=== PATIENT | female | born 1970 | race Hispanic/Latino ===

== ENCOUNTER 2018-04-04 06:24 | Day surgery (SDC) | payer OTHER ==
[2018-04-04] MEDS ORDERED: ZOFRAN IV PRN (09:26)
[2018-04-04] MEDS ORDERED: TORADOL IV PRN (09:26)
[2018-04-04] MEDS ORDERED: DILAUDID IV PRN ×2 (09:26)
[2018-04-04] MEDS ORDERED: REGLAN IV PRN (09:26)
[2018-04-04] MEDS ORDERED: MOTRIN PO PRN (09:26)
--- NOTE | 2018-04-04 09:32 | Anesthesia Consultation ---
Anesthesia Consult and Med Hx Date of service: 04/04/18 - Airway Anesthetic Teeth Evaluation: Good ROM Head & Neck: Adequate Mental/Hyoid Distance: Adequate Mallampati Class: Class I Intubation Access Assessment: Good - Pulmonary Exam CTA: Yes - Cardiac Exam Cardiac Exam: RRR - Pre-Operative Health Status ASA Pre-Surgery Classification: ASA1, ASA2 Proposed Anesthetic Plan: General - Pre-Anesthesia Comment Pre-Anesthesia Comments: LMA ok - Central Nervous System Hx Seizures: Yes (last seizure at age 26) Hx Psychiatric Problems: No - Other Systems Hx Alcohol Use: Yes (OCCAS) Hx Substance Use: No
--- NOTE | 2018-04-04 09:33 | Anesthesia Day of Surgery ---
Anesthesia Day of Surgery - Day of Surgery Patient Examined: Yes Patient H&P Reviewed: Yes Patient is NPO: Yes
[2018-04-04 09:35] LABS: Hematocrit 40.5 % (30.3-42.9); Hemoglobin 13.6 gm/dl (10.1-14.3); Mean Corpuscular HGB Conc 34 % (30-34); Mean Corpuscular Hemoglobin 32 pg (28-32); Mean Corpuscular Volume 95 fl (79-97); Platelet Count 245 K/mm3 (140-440); Red Blood Count 4.24 M/mm3 (3.65-5.03); Red Cell Distribution Width 12.6 % (13.2-15.2)
[2018-04-04] MEDS ORDERED: XYLOCAINE MPF 2% ONE ×2 (09:50→11:03)
[2018-04-04] MEDS ORDERED: ZEMURON IV ONE ×2 (09:50→11:03)
[2018-04-04] MEDS ORDERED: BLOXIVERZ ONE ×2 (09:50→11:30)
[2018-04-04] MEDS ORDERED: DECADRON ONE ×2 (09:50→11:03)
[2018-04-04] MEDS ORDERED: QUELICIN ONE (09:50)
[2018-04-04] MEDS ORDERED: ROBINUL ONE ×4 (09:50→11:27)
[2018-04-04] MEDS ORDERED: ZOFRAN ONE ×2 (09:50→11:03)
[2018-04-04] MEDS ORDERED: DIPRIVAN 10 MG/ML IV ONE ×2 (09:50→10:24)
[2018-04-04] MEDS ORDERED: NEO SYNEPHRINE/NS Syringe(OR USE) IV ONE ×2 (09:50→11:40)
[2018-04-04] MEDS ORDERED: LACTATED RINGERS 1,000 ML IV SCH (10:00)
[2018-04-04] MEDS ORDERED: ANCEF/STERILE WATER 2 GM/20 ML IV NR (10:00)
[2018-04-04] MEDS ORDERED: SUBLIMAZE ONE ×2 (10:24→11:08)
[2018-04-04] MEDS ORDERED: VERSED IV ONE (10:24)
[2018-04-04] MEDS ORDERED: LACTATED RINGERS 1,000 ML ONE ×2 (11:03→11:43)
[2018-04-04] MEDS ORDERED: NACL 0.9% IR ONE (12:12)
[2018-04-04] MEDS ORDERED: DILAUDID ONE (13:10)
[2018-04-04] MEDS ORDERED: DEMEROL IV PRN (14:12)
[2018-04-04 15:56] VITALS: BP 118/75
--- NOTE | 2018-04-06 11:13 | Post Anesthesia Evaluation ---
- Post Anesthesia Evaluation Patient Participated: Yes Airway Patent: Yes Stable Respiratory Function: Yes Nausea/Vomiting: No Temp > 96.8F: No Pain Manageable: Yes Adequeate Hydration: Yes Anesthesia Complications: No
--- NOTE | 2018-04-12 09:38 | Operative Report ---
SERVICE: Plastic Surgery. PREOPERATIVE DIAGNOSIS: Macromastia. POSTOPERATIVE DIAGNOSIS: Macromastia. PROCEDURE: Bilateral reduction mammoplasty. SURGEON: Keenan Xie M.D. CYLINDER TESTER: Yevgeniy Hernandez CSA. DESCRIPTION OF PROCEDURE: The patient was brought to the operating room and placed on the table in supine position. Following administration of general anesthesia, bilateral breasts were prepped with Betadine solution and draped in the usual sterile manner. A #10 blade scalpel was used to make a circumareolar skin incision followed by deepithelialization of an inferior dermal pedicle. Modified Nuñez pattern skin markings were incised with scalpel. Skin flaps were raised in standard manner. Breast tissue resected using the electrocautery and sent to pathology as specimen. Hemostasis controlled using the electrocautery. Closure was performed over 10 mm FAUZIA drains using interrupted and running subcuticular 2-0 Monocryl sutures. Mastisol, Steri-Strips, and sterile dressings were applied. The patient tolerated the procedure well and returned to recovery room in stable condition. JOB# [id number] FTW/NTS
== END 2018-04-04 16:52 | disposition home or self-care (01) ==
LOC: OR 06:24
PROVIDERS: ATTEND Plastic Surgery
DX: N60.12 Diffuse cystic mastopathy of left breast (principal); N60.11 Diffuse cystic mastopathy of right breast; N62 Hypertrophy of breast; G40.909 Epilepsy, unspecified, not intractable, without status epilepticus; Z79.899 Other long term (current) drug therapy; Z72.89 Other problems related to lifestyle; Z98.890 Other specified postprocedural states; Z80.8 Family history of malignant neoplasm of other organs or systems
CPT/HCPCS: 19318; 36415; 81025; 85027; 88305; J0330; J0690; J1100; J1170; J1885; J2175; J2250; J2370; J2405; J2704; J2710; J3010; J7120